=== PATIENT | male | born 1980 | race Two or more races ===

== ENCOUNTER 2016-12-29 17:44 | Emergency (ER) | payer MEDICAID ==
[2016-12-29] MEDS ORDERED: LORAZEPAM 1 MG TABLET PO ONE (19:17)
[2016-12-29] MEDS ORDERED: MECLIZINE HCL 25 MG TABLET PO ONE ×2 (19:17→20:51)
--- NOTE | 2016-12-29 19:41 | ER Document Report ---
ED General - General Chief Complaint: Near Syncope Stated Complaint: DIZZY,NEAR SYNCOPE,NAUSEA Time Seen by Provider: 12/29/16 18:28 Mode of Arrival: Ambulatory Information source: Patient Notes: 36-year-old male presents with complaints of vertigo. Patient notes symptoms occurred when he tried to sit up suddenly from laying flat. Patient notes he felt extremely dizzy denied any chest pain shortness of breath Is improved when staying still TRAVEL OUTSIDE OF THE [place] IN LAST 30 DAYS: No - HPI Onset: Just prior to arrival Onset/Duration: Sudden Quality of pain: No pain Severity: Moderate Pain Level: Denies Associated symptoms: Other Exacerbated by: Movement Relieved by: Remaining still Similar symptoms previously: No Recently seen / treated by doctor: No - Related Data Allergies/Adverse Reactions: No Known Allergies Allergy (Verified 12/29/16 17:51) Past Medical History - Social History Smoking Status: Current Every Day Smoker Cigarette use (# per day): Yes Chew tobacco use (# tins/day): No Smoking Education Provided: No Family History: Reviewed & Not Pertinent Patient has suicidal ideation: No Patient has homicidal ideation: No - Past Medical History Cardiac Medical History: Reports: Hx Heart Attack, Hx Hypercholesterolemia, Hx Hypertension Renal/ Medical History: Denies: Hx Peritoneal Dialysis Psychiatric Medical History: Reports: Hx Depression - Immunizations Hx Diphtheria, Pertussis, Tetanus Vaccination: Yes Review of Systems - Review of Systems Notes: REVIEW OF SYSTEMS: CONSTITUTIONAL : Denies fever, chills, or sweats. Denies recent illness. EENT: Denies eye, ear, throat, or mouth pain or symptoms. Denies nasal or sinus congestion or discharge. Denies throat, tongue, or mouth swelling or difficulty swallowing. CARDIOVASCULAR: Denies chest pain. Denies palpitations or racing or irregular heart beat. Denies ankle edema. RESPIRATORY: Denies cough, cold, or chest congestion. Denies shortness of breath, difficulty breathing, or wheezing. GASTROINTESTINAL: Denies abdominal pain or distention. Denies nausea, vomiting , or diarrhea. Denies blood in vomitus, stools, or per rectum. Denies black, tarry stools. Denies constipation. GENITOURINARY: Denies difficulty urinating, painful urination, burning, frequency, blood in urine, or discharge. MUSCULOSKELETAL: Denies back or neck pain or stiffness. Denies joint pain or swelling. SKIN: Denies rash, lesions or sores. HEMATOLOGIC : Denies easy bruising or bleeding. LYMPHATIC: Denies swollen, enlarged glands. NEUROLOGICAL: Admits to vertigo PSYCHIATRIC: Denies anxiety or stress. Denies depression, suicidal ideation, or homicidal ideation. ALL OTHER SYSTEMS REVIEWED AND NEGATIVE. Dictation was performed using [employer] voice recognition software PHYSICAL EXAMINATION: GENERAL: Well-appearing, well-nourished and in no acute distress. HEAD: Atraumatic, normocephalic. EYES: Pupils equal round and reactive to light, extraocular movements intact, sclera anicteric, conjunctiva are normal. ENT: Nares patent, oropharynx clear without exudates. Moist mucous membranes. NECK: Normal range of motion, supple without lymphadenopathy LUNGS: Breath sounds clear to auscultation bilaterally and equal. No wheezes rales or rhonchi. HEART: Regular rate and rhythm without murmurs ABDOMEN: Soft, nontender, nondistended abdomen. No guarding, no rebound. No masses appreciated. Musculoskeletal: Normal range of motion, no pitting or edema. No cyanosis. NEUROLOGICAL: Completely reproducible vertigo symptoms cranial nerves grossly intact. Normal speech, normal gait. Normal sensory, motor exams PSYCH: Normal mood, normal affect. SKIN: Warm, Dry, normal turgor, no rashes or lesions noted. Physical Exam - Vital signs Vitals: Temp Pulse Resp BP Pulse Ox 98.4 F 72 17 143/90 H 97 12/29/16 17:51 12/29/16 17:51 12/29/16 17:51 12/29/16 17:51 12/29/16 17:51 Course - Re-evaluation Re-evalutation: 12/29/16 20:01 Patient's presentation is consistent with vertigo which is positional, when patient turns to the right he has nystagmus and immediately has exact symptoms. He will be treated for his symptoms and is otherwise stable for discharge After performing a Medical Screening Examination, I estimate there is LOW risk for INTRACRANIAL HEMORRHAGE, ISCHEMIC CVA, MALIGNANT DYSRHYTHMIA, ACUTE CORONARY SYNDROME, MENINGITIS, PULMONARY EMBOLISM, or SEPSIS thus I consider the discharge disposition reasonable. I have reevaluated this patient multiple times and no significant life threatening changes are noted. The patient and I have discussed the diagnosis and risks, and we agree with discharging home with close follow-up with the understanding that symptoms and presentations can change. We also discussed returning to the Emergency Department immediately if new or worsening symptoms occur. We have discussed the symptoms which are most concerning (e.g., changing or worsening pain, weakness, vomiting, fever) that necessitate immediate return. - Vital Signs Vital signs: Temp Pulse Resp BP Pulse Ox 98.4 F 72 17 143/90 H 97 12/29/16 17:51 12/29/16 17:51 12/29/16 17:51 12/29/16 17:51 12/29/16 17:51 - EKG Interpretation by Nv EKG shows normal: Sinus rhythm, [place], Intervals, QRS Complexes Discharge - Discharge Clinical Impression: Vertigo Condition: Stable Disposition: HOME, SELF-CARE Instructions: Vertigo ([facility]) Prescriptions: Meclizine HCl [Antivert 25 mg Tablet] 25 mg PO TID PRN #21 tablet PRN Reason: Referrals: NEDRA KOCH MD [Primary Care Provider] - Follow up in 3-5 days
[2016-12-29 20:03] LABS: ABSOLUTE BASOPHILS # (AUTO) 0.1 10^3/uL (0.0-0.2); ABSOLUTE EOSINOPHILS # (AUTO) 0.3 10^3/uL (0.0-0.6); ABSOLUTE MONOCYTES (AUTO) 0.7 10^3/uL (0.1-1.4); ABSOLUTE NEUT (AUTO) 4.2 10^3/uL (1.7-8.2); BASOPHILS % (AUTO) 0.8 % (0-2); EOSINOPHILS % (AUTO) 3.4 % (0-6); HEMATOCRIT 43.8 % (37.9-51.0); HEMOGLOBIN 14.9 g/dL (13.5-17.0); HGB HCT DIFFERENCE 0.9; LYMPHOCYTES % (AUTO) 36.8 % (13-45); MEAN CORPUSCULAR HEMOGLOBIN 29.9 pg (27.0-33.4); MEAN CORPUSCULAR HGB CONC 34.1 g/dL (32.0-36.0); MEAN CORPUSCULAR VOLUME 88 fl (80-97); MONOCYTES % (AUTO) 8.1 % (3-13); RED CELL DISTRIBUTION WIDTH 13.9 % (11.5-14.0); SEGMENTED NEUTROPHILS % (AUTO) 50.9 % (42-78); WHITE BLOOD COUNT 8.3 10^3/uL (4.0-10.5)
[2016-12-29 20:38] LABS: ALANINE AMINOTRANSFERASE 48 U/L (21-72); ALBUMIN 4.3 g/dL (3.5-5.0); ALKALINE PHOSPHATASE 55 U/L (38-126); ANION GAP 14 (5-19); ASPARTATE AMINO TRANSFERASE 26 U/L (17-59); BILIRUBIN,DIRECT 0.3 mg/dL (0.0-0.4); BILIRUBIN,TOTAL 0.4 mg/dL (0.2-1.3); BLOOD UREA NITROGEN 15 mg/dL (7-20); CARBON DIOXIDE 23 mmol/L (22-30); CHLORIDE 106 mmol/L (98-107); CREATININE RESULT 0.79 mg/dL (0.52-1.25); GLUCOSE 89 mg/dL (75-110); POTASSIUM 4.1 mmol/L (3.6-5.0); SODIUM 142.6 mmol/L (137-145); TOTAL PROTEIN 7.2 g/dL (6.3-8.2)
[2016-12-29 21:17] VITALS: BP 140/68
--- NOTE | 2016-12-30 10:42 | EKG REPORT ---
SEVERITY:- ABNORMAL ECG - SINUS RHYTHM LEFT POSTERIOR FASCICULAR BLOCK : Confirmed by: Joshua Watts 30-Dec-2016 10:42:11
== END 2016-12-29 21:17 | disposition home or self-care (01) ==
LOC: ER 17:44
DX: R42 Dizziness and giddiness (principal); R55 Syncope and collapse; R11.0 Nausea; F17.210 Nicotine dependence, cigarettes, uncomplicated
CPT/HCPCS: 36415; 80053; 85025; 93005; 93010; 99284

== ENCOUNTER 2017-03-29 20:48 | Observation (INO) | payer MEDICAID ==
--- NOTE | 2017-03-29 21:10 | ER Document Report ---
ED Snake Bite <BETO OLEA - Last Filed: 03/29/17 23:35> - General Mode of Arrival: Ambulatory Information source: Patient TRAVEL OUTSIDE OF THE [place] IN LAST 30 DAYS: No - HPI Context of attack: Approached snake Remembers: Injury, Coming to hospital Prehospital treatment: Elevation <SAPPHIRE TA - Last Filed: 03/30/17 01:38> - General Chief Complaint: Snake Bite Stated Complaint: POSSIBLE SNAKE BITE Time Seen by Provider: 03/29/17 21:06 Notes: Patient is a 36-year-old male that presents to the emergency department today with complaints of a copperhead snake bite to his right third digit on upper extremity. Patient states that he knew it was a copperhead snake but he "does not kill anything" so he tried to get it out of his yard. Patient complains of pain and swelling to the finger. (SAPPHIRE TA) - Related Data Allergies/Adverse Reactions: No Known Allergies Allergy (Verified 03/29/17 20:51) Past Medical History - General Information source: Patient - Social History Smoking Status: Current Every Day Smoker Cigarette use (# per day): Yes Frequency of alcohol use: None Drug Abuse: None Lives with: Family Family History: Reviewed & Not Pertinent Patient has suicidal ideation: No Patient has homicidal ideation: No - Past Medical History Cardiac Medical History: Reports: Hx Heart Attack, Hx Hypercholesterolemia, Hx Hypertension Psychiatric Medical History: Reports: Hx Depression Surgical Hx: Negative - Immunizations Hx Diphtheria, Pertussis, Tetanus Vaccination: Yes <SAPPHIRE TA - Last Filed: 03/30/17 01:38> Review of Systems - Review of Systems Constitutional: No symptoms reported EENT: No symptoms reported Cardiovascular: No symptoms reported Respiratory: No symptoms reported Gastrointestinal: No symptoms reported Genitourinary: No symptoms reported Male Genitourinary: No symptoms reported Musculoskeletal: See HPI, Other - right 3rd digit swelling Skin: No symptoms reported Hematologic/Lymphatic: No symptoms reported Neurological/Psychological: No symptoms reported -: Yes All other systems reviewed and negative <SAPPHIRE TA - Last Filed: 03/30/17 01:38> Physical Exam <BETO OLEA - Last Filed: 03/29/17 23:35> <SAPPHIRE TA - Last Filed: 03/30/17 01:38> - Vital signs Vitals: Temp Pulse Resp BP Pulse Ox 98.8 F 72 19 157/97 H 96 03/29/17 20:51 03/29/17 20:51 03/29/17 20:51 03/29/17 20:51 03/29/17 20:51 - Notes Notes: Physical Exam: General: Alert, appears well. HEENT: Normocephalic. Atraumatic. PERRL. Extraocular movements intact. Oropharynx clear. Neck: Supple. Non-tender. Respiratory: No respiratory distress. Clear and equal breath sounds bilaterally. Cardiovascular: Regular rate and rhythm. Abdominal: Normal Inspection. Non-tender. No distension. Normal Bowel Sounds. Back: Non-tender. No deformity or step off. Extremities: Moves all four extremities. Upper extremities: Right third digit has puncture wounds consistent with snake bite, localized pain and swelling at the MCP joint up to dorsum of the hand. Lower extremities: Normal inspection. No edema. Normal ROM. Neurological: Normal cognition. AAOx4. Normal speech. Psychological: Normal affect. Normal Mood. Skin: Warm. Dry. Normal color. (SAPPHIRE TA) Course - Laboratory Result Diagrams: 03/29/17 21:27 <BETO OLEA - Last Filed: 03/29/17 23:35> - Laboratory Result Diagrams: 03/29/17 21:27 <SAPPHIRE TA - Last Filed: 03/30/17 01:38> - Re-evaluation Re-evalutation: 03/29/17 23:35 Patient presented to the emergency department approximately 15 minutes after he reached out to grab a copperhead snake that was in his yard. He said he wanted to grab a hold of it and throat back into the [place]adows. He got bit on his third digit of his right hand which is where he is dominant. On examination immediately at the bedside he has localized pain and swelling at the MCP joint up to the dorsum of the hand. It is localized red and swollen and tender. Immediately after evaluating him I contacted poison control ordered laboratory evaluation cleanse the area. At this point described called down to the pharmacy and they said that they do not have any antivenom. I personally called the pharmacist who verified to me that she was in fact the pharmacist. I asked her specifically whether or not we had the antivenom here. She stated we were on back order and did not have any antivenom CroFab and that there was no alternative. At this point I contacted the nursing clean up supervisor as well as [facility] and had an accepting physician by the name of Dr. DIPIKA VASQUEZ. The helicopter was not flying due to weather and we were making arrangements for ground transport. The nursing clean up supervisor in ED nurse called over to [facility] to see if they had any antivenom. They in fact did have enough to get the initial dose in. They sent someone over to get the antivenom and it was obtained in the emergency department. At this point it was discovered that the pharmacist incorrectly stated that we did not have any CroFab and we actually have several vials of CroFab. The director of the pharmacy was notified. At this point the patient's swelling went up to the chest heaviness and fatigue and nausea. CroFab is currently being administered to the patient and we have in our files here for the complete course. I contacted Dr. Aldridge who is on-call for surgery and is going to admit the patient to the hospital. He is reassessed at the bedside stable and doing well. I contacted vitamin back and canceled the transfer of the patient. (EBTO OLEA) - Vital Signs Vital signs: Temp Pulse Resp BP Pulse Ox 98.8 F 72 20 152/98 H 99 03/29/17 20:51 03/29/17 20:51 03/30/17 00:15 03/30/17 00:01 03/30/17 00:01 Critical Care Note - Critical Care Note Total time excluding time spent on procedures (mins): 55 <BETO OLEA - Last Filed: 03/29/17 23:35> Discharge - Discharge Admitting Provider: Surgicalist <BETO OLEA - Last Filed: 03/29/17 23:35> <SAPPHIRE TA - Last Filed: 03/30/17 01:38> - Discharge Clinical Impression: Acute snakebite requiring antivenom Condition: Stable Disposition: ADMITTED INPATIENT Scribe Attestation: 03/29/17 23:38 I personally performed the services described in the documentation reviewed the documentation recorded by my scribe in my presence and it accurately and completely records my words and actions (BETO OLEA) Scribe Documentation - Scribe Written by Scribe:: Roberto Thomas, 03/30/2017 [id number] acting as scribe for :: Kip <SAPPHIRE TA - Last Filed: 03/30/17 01:38>
[2017-03-29 21:47] LABS: ABSOLUTE BASOPHILS # (AUTO) 0.1 10^3/uL (0.0-0.2); ABSOLUTE EOSINOPHILS # (AUTO) 0.3 10^3/uL (0.0-0.6); ABSOLUTE LYMPHOCYTES (AUTO) 2.9 10^3/uL (0.5-4.7); ABSOLUTE MONOCYTES (AUTO) 0.6 10^3/uL (0.1-1.4); ABSOLUTE NEUT (AUTO) 3.9 10^3/uL (1.7-8.2); BASOPHILS % (AUTO) 0.7 % (0-2); EOSINOPHILS % (AUTO) 3.9 % (0-6); HEMATOCRIT 43.3 % (37.9-51.0); HEMOGLOBIN 14.6 g/dL (13.5-17.0); HGB HCT DIFFERENCE 0.5; MEAN CORPUSCULAR HEMOGLOBIN 30.3 pg (27.0-33.4); MEAN CORPUSCULAR HGB CONC 33.9 g/dL (32.0-36.0); MEAN CORPUSCULAR VOLUME 90 fl (80-97); MONOCYTES % (AUTO) 7.4 % (3-13); RED BLOOD COUNT 4.83 10^6/uL (4.35-5.55); RED CELL DISTRIBUTION WIDTH 13.9 % (11.5-14.0); WHITE BLOOD COUNT 7.7 10^3/uL (4.0-10.5)
[2017-03-29 21:51] LABS: PROTHROMBIN TIME 13.5 SEC (11.4-15.4)
[2017-03-29] MEDS ORDERED: ANTIVENIN,CROTALIDAE FAB(OVIN) INJ 1 VIAL IV ONE ×2 (23:18→23:21)
[2017-03-29] MEDS ORDERED: FENTANYL CITRATE INJ/PF 100 MCG/2 ML AMPUL IV ONE (23:41)
--- NOTE | 2017-03-29 23:55 | EKG REPORT ---
SEVERITY:- ABNORMAL ECG - SINUS RHYTHM INCOMPLETE RIGHT BUNDLE BRANCH BLOCK : Confirmed by: Joshua Watts 29-Mar-2017 23:54:37
[2017-03-30] MEDS ORDERED: ONDANSETRON HCL INJ/PF 4 MG/2 ML SDV IV PRN (01:23)
[2017-03-30] MEDS ORDERED: PIPERACILLIN/TAZOBACTAM 3.375 GM VIAL IV ONE ×2 (01:28→02:42)
[2017-03-30] MEDS ORDERED: PIPERACILLIN/TAZOBACTAM 3.375 GM VIAL IV PRN (02:02)
[2017-03-30] MEDS: MORPHINE SULFATE 10 MG/ML INJ IV PRN ×2 (02:36→09:23)
--- NOTE | 2017-03-30 02:38 | HISTORY AND PHYSICAL E ---
History and Physical NAME: ABRAHAN TORRES : 1980 AGE: 36Y ADMITTED: 03/29/2017 ROOM: 425 REASON FOR ADMISSION: Copperhead snake bite to the middle finger dorsal aspect of the right hand. HISTORY OF PRESENT ILLNESS: This 36-year-old male was called by his children because they saw a large snake in the backyard. The patient attempted to grab the snake to throw it back into the brush but sustained a copperhead rattlesnake bite to the dorsum of the third digit of the right hand between the metacarpal and proximal IP joint. There was only mild envenomation as there is only 1 fang waleska noted on the dorsum of the third digit of the right hand between the metacarpal phalangeal joint. The patient developed swelling of his hand to the distal forearm but there is no history of *------* numbness, lightheadedness, or any signs of moderate or severe evenomation. Patient presented to the emergency room with stable vital signs, complaining of only swelling of his right arm. Patient was given CroFab. Clotting studies were drawn; all of which showed no evidence of defibrination. Patient is now admitted for observation. PAST MEDICAL HISTORY: 1. Mitral valve prolapse. 2. Murmur. 3. Cardiac disease since age 13. REVIEW OF SYSTEMS: Patient has no symptoms referable to the ear, nose and throat, respiratory system. No symptoms referable to the gastrointestinal, genitourinary, musculoskeletal, integumentary, lymphatic, endocrine, or psychiatric symptoms. PHYSICAL EXAMINATION: GENERAL: Reveals a 36-year-old male who is well nourished, well developed, in no acute distress. VITAL SIGNS: Stable. Saturation is 98%, heart rate is 60, blood pressure 130/80. HEENT: There is no conjunctival pallor or scleral icterus. Head is normocephalic, atraumatic. Mucous membranes are moist and pink. NECK: Supple without nodes, masses, thyromegaly, JVD, or bruits. Trachea is midline. CHEST WALL: Good excursions. LUNGS: Clear anteriorly with good entry. CARDIOVASCULAR: S1 and S2 are audible without murmurs or gallops. ABDOMEN: Soft. Bowel sounds are present. No hernias or bruits. No tenderness. EXTREMITIES: Full range of motion. Pertinent findings are limited to the right hand where patient is noted to have 1 fang waleska between the MP joint of the third digit of the right hand on the dorsal surface. There is swelling of a mild to moderate degree involving the hand, wrist,and forearm to just above the antecubital fossa. It is not tense. There are adequate pulses noted throughout the hand. Distal, radial, and ulnar pulses are palpable. No evidence of compartment syndrome. RECTAL: Deferred. IMPRESSION: Copperhead snake bite to the third digit right hand dorsal surface between the MP joint, with mild envenomation, and no evidence of defibrination or clotting disorder or DIC. PLAN: Patient is to be given antibiotic therapy, elevation of their right arm, and supportive therapy. DICTATING PHYSICIAN: ROBE RIZO M.D. [id number] YURIY#: [id number] ID: [id number] JOB#: [id number] ACCT: [id number] cc: >
[2017-03-30] MEDS ORDERED: ANTIVENIN,CROTALIDAE FAB(OVIN) INJ 1 VIAL IV PRN (02:49)
[2017-03-30] MEDS ORDERED: ANTIVENIN,CROTALIDAE FAB(OVIN) INJ 1 VIAL IV ONE ×2 (04:43→05:08)
[2017-03-30] MEDS ORDERED: NORMAL SALINE IV PRN (05:01)
[2017-03-30] MEDS ORDERED: ANTIVENIN CROTALIDAE FAB IV PRN (05:01)
[2017-03-30] MEDS: ENOXAPARIN SODIUM INJ 40 MG/0.4 ML DISP.SYRIN SUBCUT SCH (09:21)
[2017-03-30] MEDS: ESCITALOPRAM OXALATE 10 MG TABLET PO SCH (09:22)
[2017-03-30] MEDS: DOCUSATE SODIUM 100 MG CAPSULE PO SCH (09:22)
[2017-03-30] MEDS ORDERED: MORPHINE SULFATE 10 MG/ML INJ IV PRN (12:26)
[2017-03-30 13:03] LABS: ABSOLUTE EOSINOPHILS # (AUTO) 0.3 10^3/uL (0.0-0.6); ABSOLUTE LYMPHOCYTES (AUTO) 2.5 10^3/uL (0.5-4.7); ABSOLUTE MONOCYTES (AUTO) 0.6 10^3/uL (0.1-1.4); ABSOLUTE NEUT (AUTO) 3.4 10^3/uL (1.7-8.2); BASOPHILS % (AUTO) 0.5 % (0-2); EOSINOPHILS % (AUTO) 3.9 % (0-6); HEMOGLOBIN 14.3 g/dL (13.5-17.0); HGB HCT DIFFERENCE 1.9; LYMPHOCYTES % (AUTO) 36.8 % (13-45); MEAN CORPUSCULAR HEMOGLOBIN 30.8 pg (27.0-33.4); MEAN CORPUSCULAR VOLUME 88 fl (80-97); MONOCYTES % (AUTO) 8.5 % (3-13); RED BLOOD COUNT 4.65 10^6/uL (4.35-5.55); RED CELL DISTRIBUTION WIDTH 13.9 % (11.5-14.0); SEGMENTED NEUTROPHILS % (AUTO) 50.3 % (42-78); WHITE BLOOD COUNT 6.8 10^3/uL (4.0-10.5)
[2017-03-30 13:14] LABS: FIBRINOGEN 256 mg/dL (209-497); PROTHROMBIN TIME 13.5 SEC (11.4-15.4)
[2017-03-30] MEDS: HYDROMORPHONE HCL INJ/PF 2 MG/ML AMPULE IV PRN ×2 (13:48→18:45)
[2017-03-30] MEDS: NORMAL SALINE 1000 ML 1,000 ML IV PRN ×2 (16:08→18:09)
--- NOTE | 2017-03-30 17:38 | PDOC CONSULTATION ---
History of Present Illness Admission Date/PCP: 03/30/17 01:24 NEDRA KOCH MD Patient complains of: Right hand swelling History of Present Illness: ABRAHAN TORRES is a 36 year old male who presented to the emergency room last evening with redness and swelling in his right hand. He states he was bit by a snake in the middle finger. The snake was obtained and confirmed to be a copperhead snake bite. Patient received antivenom since then he has had significant improvement in terms of his swelling although he still unable to make a full fist. He has been using Dilaudid with good results. Does have some tingling pain 10/06. Past Medical History Cardiac Medical History: Reports: Myocardial Infarction, Hyperlipidema, Hypertension Psychiatric Medical History: Reports: Depression Social History Lives with: Family Smoking Status: Current Every Day Smoker Cigarettes Packs Per Day: 0.5 Frequency of Alcohol Use: Occasional Hx Recreational Drug Use: No Hx Prescription Drug Abuse: No Family History Family History: Reviewed & Not Pertinent Parental Family History Reviewed: No Children Family History Reviewed: No Sibling(s) Family History Reviewed.: No Medication/Allergy Home Medications: Escitalopram Oxalate [Lexapro] 20 mg PO DAILY 06/02/11 Fenofibrate Nanocrystallized [Tricor 145 mg Tablet] 145 mg PO QHS 01/25/14 Allergies/Adverse Reactions: No Known Allergies Allergy (Verified 03/29/17 20:51) Review of Systems Constitutional: ABSENT: chills, fever(s), headache(s), weight gain, weight loss Eyes: ABSENT: visual disturbances Ears: ABSENT: hearing changes Cardiovascular: ABSENT: chest pain, dyspnea on exertion, edema, orthropnea, palpitations Respiratory: ABSENT: cough, hemoptysis Gastrointestinal: ABSENT: abdominal pain, constipation, diarrhea, hematemesis, hematochezia, nausea, vomiting Genitourinary: ABSENT: dysuria, hematuria Musculoskeletal: PRESENT: as per HPI Integumentary: ABSENT: rash, wounds Neurological: ABSENT: abnormal gait, abnormal speech, confusion, dizziness, focal weakness, syncope Psychiatric: ABSENT: anxiety, depression, homidical ideation, suicidal ideation Endocrine: ABSENT: cold intolerance, heat intolerance, menstrual abnormalities, polydipsia, polyuria Hematologic/Lymphatic: ABSENT: easy bleeding, easy bruising, lymphadenopathy Physical Exam Vital Signs: Temp Pulse Resp BP Pulse Ox 97.7 F 53 L 16 118/78 99 09/01/17 16:00 03/30/17 16:00 03/30/17 16:00 03/30/17 16:00 03/30/17 16:00 Intake & Output 03/29/17 03/30/17 03/31/17 06:59 06:59 06:59 Intake Total 420 1854 Output Total 250 Balance 420 1604 Weight 94 kg General appearance: PRESENT: no acute distress, well-developed, well-nourished Head exam: PRESENT: atraumatic, normocephalic Eye exam: PRESENT: conjunctiva pink, EOMI, PERRLA. ABSENT: scleral icterus Ear exam: PRESENT: normal external ear exam Mouth exam: PRESENT: moist, tongue midline Neck exam: PRESENT: full ROM. ABSENT: carotid bruit, JVD, lymphadenopathy, thyromegaly Respiratory exam: PRESENT: unlabored Cardiovascular exam: PRESENT: RRR. ABSENT: diastolic murmur, rubs, systolic murmur Pulses: PRESENT: normal radial pulses Vascular exam: PRESENT: normal capillary refill GI/Abdominal exam: PRESENT: normal bowel sounds, soft. ABSENT: distended, guarding, mass, organolmegaly, rebound, tenderness Rectal exam: PRESENT: deferred Musculoskeletal exam: PRESENT: other - Right upper extremity: Areas of demarcated swelling had notably improved. Does have residual swelling along the forearm compared to the noninjured left side. Small puncture wound along the dorsum of the middle finger at the level of the middle phalanx. Cap refill less than 2 seconds. No sensory deficits. No pain with passive stretch. Compartments of the hand and forearm soft and compressible no sign of compartment syndrome. Intact flexion of the DIP, PIP and MP joints. Neurological exam: PRESENT: alert, awake, oriented to person, oriented to place , oriented to time, oriented to situation, CN II-XII grossly intact. ABSENT: motor sensory deficit Psychiatric exam: PRESENT: appropriate affect, normal mood. ABSENT: homicidal ideation, suicidal ideation Skin exam: PRESENT: dry, intact, warm. ABSENT: cyanosis, rash Results Laboratory Results: 03/30/17 12:52 03/30/17 12:52 WBC 6.8 RBC 4.65 Hgb 14.3 Hct 41.0 MCV 88 MCH 30.8 MCHC 35.0 RDW 13.9 Plt Count 211 Seg Neutrophils % 50.3 Lymphocytes % 36.8 Monocytes % 8.5 Eosinophils % 3.9 Basophils % 0.5 Absolute Neutrophils 3.4 Absolute Lymphocytes 2.5 Absolute Monocytes 0.6 Absolute Eosinophils 0.3 Absolute Basophils 0.0 Assessment & Plan - Diagnosis (1) Venomous bite Qualifiers: Encounter type: initial encounter Injury intent: accidental or unintentional Qualified Code(s): T63.91XA - Toxic effect of contact with unspecified venomous animal, accidental (unintentional), initial encounter Is this a current diagnosis for this admission?: Yes Plan: She sustained a copperhead snake bite and was treated promptly with antivenom. Coags and metabolic profile have maintained normal values. On examination there is no sign or symptoms of compartment syndrome and I feel compartment syndrome is less likely at this juncture he should continue aggressive elevation and have also encouraged passive and active motion of the digits. If patient notices increasing pain swelling or there is concern for compartment syndrome please contact me for reevaluation.
--- NOTE | 2017-03-30 21:38 | PROGRESS NOTE E ---
Progress Note NAME: ABRAHAN TORRES : 1980 AGE: 36Y DATE: 03/30/2017 ROOM: 425 SUBJECTIVE: The patient is still complaining of pain from the right hand where primarily he had a snake bite of the right third finger. Other than the pain, no other complaints. Denies any numbness of the right hand. He claims the swelling appears to have subsided a little bit from last night. I have asked Dr. Torres, Orthopedics, to evaluate him for a possible compartment syndrome. He evaluated the patient and he said there is no evidence of compartment syndrome at this time. OBJECTIVE: On examination, the right hand is still markedly swollen compared to the left hand. However, he has intact sensation to the right fingers with just slight decrease in flexion range. His right wrist pulses are intact. The swelling over the right elbow, according to the patient, appears to have subsided and I also saw him early this morning and this afternoon. This afternoon the swelling appears to have somewhat slightly decreased. LABORATORY: Labs showed white count remained normal and the PT/INR remained essentially unchanged fibrinogen level is at 256. PLAN: Will continue him on right arm elevation and IV antibiotic therapy for the next 12-24 hours. DICTATING PHYSICIAN: MOISES MATHIS M.D. [id number] PHY#: [id number] ID: [id number] JOB#: [id number] ACCT: [id number] cc: > [facility]
[2017-03-30] MEDS ORDERED: FENOFIBRATE NANOCRYSTALLIZED 145 MG TABLET PO SCH (22:00)
[2017-03-31 05:24] LABS: ALANINE AMINOTRANSFERASE 47 U/L (21-72); ALBUMIN 3.6 g/dL (3.5-5.0); ALKALINE PHOSPHATASE 57 U/L (38-126); ANION GAP 10 (5-19); ASPARTATE AMINO TRANSFERASE 20 U/L (17-59); BILIRUBIN,DIRECT 0.3 mg/dL (0.0-0.4); BILIRUBIN,TOTAL 0.3 mg/dL (0.2-1.3); BLOOD UREA NITROGEN 14 mg/dL (7-20); CALCIUM 9.2 mg/dL (8.4-10.2); CARBON DIOXIDE 23 mmol/L (22-30); CHLORIDE 108 mmol/L (98-107); GLUCOSE 104 mg/dL (75-110); POTASSIUM 4.3 mmol/L (3.6-5.0); SODIUM 141.4 mmol/L (137-145); TOTAL PROTEIN 5.9 g/dL (6.3-8.2)
[2017-03-31] MEDS: ENOXAPARIN SODIUM INJ 40 MG/0.4 ML DISP.SYRIN SUBCUT SCH (11:01)
[2017-03-31] MEDS: ESCITALOPRAM OXALATE 10 MG TABLET PO SCH (11:02)
[2017-03-31] MEDS: DOCUSATE SODIUM 100 MG CAPSULE PO SCH (11:04)
[2017-03-31 12:31] VITALS: BP 132/78
--- NOTE | 2017-04-06 12:12 | DISCHARGE SUMMARY E ---
Discharge Summary NAME: ABRAHAN TORRES : 1980 AGE: 36Y ADMITTED: 03/30/2017 DISCHARGED: 03/31/2017 FINAL DIAGNOSIS: Copperhead Snake bite to the right middle finger. SUMMARY OF HOSPITAL COURSE: This is a 36-year-old male who attempted to grab a Copperhead Snake to throw it back into the pina but sustained a Copperhead Snake bite to the dorsum of the third digit of the right hand between the metacarpal and proximal IP joint. There was only one fine waleska noted on the dorsum of the third digit of the right hand. However, the patient developed swelling of the hand and the distal forearm with some numbness and light headedness when he presented to emergency room. His vital signs were stable and was given CroFab about 4 doses, and clotting studies were drawn and no evidence of defibrination. The patient was followed on 03/30/2017, and there is some swelling of the right hand and the right forearm to the elbow though the patient claims that the swelling really has not gotten any worse from the night of admission. Blood work were drawn again for coagulation and fibrinogen levels which were all essentially normal. An Orthopedic consultation with Dr. Amaya to rule out a compartment syndrome was done. Dr. Amaya from [facility] claimed there is no evidence of compartment syndrome. The patient had another dose of CroFab on 03/30/2017. On 03/31/2017, the swelling of the right hand and the right forearm has decreased with patient able to have better movements of the right fingers. There is no numbness. DISPOSITION AND DISCHARGE INSTRUCTIONS: The patient was then discharged improved, to be followed up in the surgical clinic in a week. Patient discharged with a final diagnosis of snake bite to the right middle finger with subsequent edema. The patient was then discharged on 03/31/2017. DICTATING PHYSICIAN: MOISES MATHIS M.D. [id number] PHY#: [id number] ID: [id number] JOB#: [id number] ACCT: [id number] cc:MOISES MATHIS M.D. [facility] >
== END 2017-03-31 13:05 | disposition home health service (06) ==
LOC: ER 20:48 → EH 23:45 → UNDOADMIN 23:45 → EH 03-30 01:00 → 4S 03-30 01:00 → EH 03-30 01:24 → INTOOBSV 03-30 01:24 → EH 03-30 01:34 → 4S 03-30 01:34 → UNDOADMIN 03-30 01:34
PROVIDERS: ATTEND Surgery
PROC: 3E0334Z Introduction of Serum, Toxoid and Vaccine into Peripheral Vein, Percutaneous Approach (ICD-10-PCS; principal; 2017-03-30)
DX: T63.091A Toxic effect of venom of other snake, accidental (unintentional), initial encounter (principal); R09.89 Other specified symptoms and signs involving the circulatory and respiratory systems; R53.83 Other fatigue; R11.0 Nausea; R42 Dizziness and giddiness; R20.0 Anesthesia of skin; Y92.096 Garden or yard of other non-institutional residence as the place of occurrence of the external cause; F17.210 Nicotine dependence, cigarettes, uncomplicated; I25.2 Old myocardial infarction; E78.5 Hyperlipidemia, unspecified
CPT/HCPCS: 93005; 99285; 96365; 36415 ×3; 85025 ×2; 85384; 85610 ×2; 80053; 93010; G0378 ×2; J0840 ×2; J3490 ×2; J3010; J2270; J1650 ×2; J1170; J7030; J7050; J2543

== ENCOUNTER → 2018-04-27 | Outpatient (CLI) | payer MEDICAID ==
--- NOTE | 2018-04-27 16:05 | RADIOLOGY REPORT (SQ) ---
EXAM DESCRIPTION: CHEST 2 VIEWS COMPLETED DATE/TIME: 04/27/2018 3:48 pm REASON FOR STUDY: COUGH COMPARISON: 10/18/2015 TECHNIQUE: Frontal and lateral radiographic views of the chest acquired. NUMBER OF VIEWS: Two view. LIMITATIONS: None. FINDINGS: LUNGS AND PLEURA: No pneumothorax. No consolidation or pleural effusion. MEDIASTINUM AND HILAR STRUCTURES: Stable. HEART AND VASCULAR STRUCTURES: Stable. BONES: No acute findings. HARDWARE: None in the chest. OTHER: No other significant finding. IMPRESSION: NO ACUTE FINDINGS. TECHNICAL DOCUMENTATION: JOB ID: [id number] 2010 [employer]- All Rights Reserved Reading location - IP/workstation name: [email or web address]
== END ==
LOC: RAD 15:26
PROVIDERS: ATTEND Nurse Practitioner Family
DX: R05 Cough (principal)
CPT/HCPCS: 71046

== ENCOUNTER 2019-01-15 16:40 | Emergency (ER) | payer MEDICAID ==
[2019-01-15 18:01] VITALS: BP 133/88
[2019-01-15] MEDS ORDERED: CEPHALEXIN 500 MG CAPSULE PO ONE (18:35)
[2019-01-15] MEDS ORDERED: SULFAMETHOXAZOLE/TRIMETHOPRIM 800-160 MG TABLET PO ONE (18:35)
[2019-01-15] MEDS ORDERED: IBUPROFEN 800 MG TABLET PO ONE (18:36)
--- NOTE | 2019-01-15 18:37 | ER Document Report ---
ED Medical Screen (RME) - General Chief Complaint: Abscess Stated Complaint: ABSCESS Time Seen by Provider: 01/15/19 18:35 Primary Care Provider: NEDRA KOCH MD [Primary Care Provider] - Follow up as needed Mode of Arrival: Ambulatory Notes: Patient presents with abscess to pubic area where he had previously shaved. Patient with tender indurated area with surrounding erythema. Patient denies any fever or history of diabetes. Patient also reports cough for the past 5 days. I have greeted and performed a rapid initial assessment of this patient. A comprehensive ED assessment and evaluation of the patient, analysis of test results and completion of the medical decision making process will be conducted by additional ED providers. TRAVEL OUTSIDE OF THE [place] IN LAST 30 DAYS: No - Related Data Allergies/Adverse Reactions: No Known Allergies Allergy (Verified 01/15/19 17:05) Past Medical History - Social History Frequency of alcohol use: Rare Drug Abuse: None - Past Medical History Cardiac Medical History: Reports: Hx Heart Attack, Hx Hypercholesterolemia, Hx Hypertension Renal/ Medical History: Denies: Hx Peritoneal Dialysis Psychiatric Medical History: Reports: Hx Depression - Immunizations Hx Diphtheria, Pertussis, Tetanus Vaccination: Yes Physical Exam - Vital signs Vitals: Temp Pulse Resp BP Pulse Ox 98.4 F 63 16 133/88 H 96 01/15/19 17:59 01/15/19 17:59 01/15/19 17:59 01/15/19 17:59 01/15/19 17:59 - General Notes: Abscess to pubic area with overlying erythema Course - Vital Signs Vital signs: Temp Pulse Resp BP Pulse Ox 98.4 F 63 16 133/88 H 96 01/15/19 17:59 01/15/19 17:59 01/15/19 17:59 01/15/19 17:59 01/15/19 17:59 Doctor's Discharge - Discharge Referrals: NEDRA KOCH MD [Primary Care Provider] - Follow up as needed
--- NOTE | 2019-01-15 19:21 | RADIOLOGY REPORT (SQ) ---
EXAM DESCRIPTION: CHEST 2 VIEWS COMPLETED DATE/TIME: 01/15/2019 7:14 pm REASON FOR STUDY: cough COMPARISON: 04/27/2018 EXAM PARAMETERS: NUMBER OF VIEWS: two views TECHNIQUE: Digital Frontal and Lateral radiographic views of the chest acquired. RADIATION DOSE: NA LIMITATIONS: none FINDINGS: LUNGS AND PLEURA: No opacities, masses or pneumothorax. No pleural effusion. MEDIASTINUM AND HILAR STRUCTURES: No masses or contour abnormalities. HEART AND VASCULAR STRUCTURES: Heart normal size. No evidence for failure. BONES: No acute findings. HARDWARE: None in the chest. OTHER: No other significant finding. IMPRESSION: NO ACUTE RADIOGRAPHIC FINDING IN THE CHEST. TECHNICAL DOCUMENTATION: JOB ID: [id number] [employer]- All Rights Reserved Reading location - IP/workstation name: [email or web address]
[2019-01-15] MEDS ORDERED: LIDOCAINE 1% INJ-PF (10 MG/ML) 30 ML SDV INJ ONE (23:12)
--- NOTE | 2019-01-16 00:20 | ER Document Report ---
Entered by SALLIE UGALDE SCRIBE 01/15/19 [id number] Acting as scribe for:RIA BRAN MD ED General - General Chief Complaint: Abscess Stated Complaint: ABSCESS Time Seen by Provider: 01/15/19 18:35 Primary Care Provider: NEDRA KOCH MD [Primary Care Provider] - Follow up as needed Mode of Arrival: Ambulatory Information source: Patient Notes: Patient is a 38 year old male presenting to the emergency department complaining of an abscess onset 4 days ago. Patient states he developed an ingrown hair in his pubic region 4 days ago. He states he attempted to "pop" the ingrown hair but was unsuccessful. He states the area has grown larger and become more painful. He also complains of a mild productive cough with minimal sputum. TRAVEL OUTSIDE OF THE [place] IN LAST 30 DAYS: No - Related Data Allergies/Adverse Reactions: No Known Allergies Allergy (Verified 01/15/19 17:05) Past Medical History - General Information source: Patient - Social History Smoking Status: Current Every Day Smoker Cigarette use (# per day): Yes - 1/2 PPD Chew tobacco use (# tins/day): No Smoking Education Provided: No Frequency of alcohol use: Rare Drug Abuse: None Occupation: [employer] Family History: Reviewed & Not Pertinent Patient has suicidal ideation: No Patient has homicidal ideation: No - Past Medical History Cardiac Medical History: Reports: Hx Heart Attack, Hx Hypercholesterolemia, Hx Hypertension Psychiatric Medical History: Reports: Hx Depression - Immunizations Hx Diphtheria, Pertussis, Tetanus Vaccination: Yes Review of Systems - Review of Systems Constitutional: No symptoms reported EENT: No symptoms reported Cardiovascular: No symptoms reported Respiratory: See HPI, Cough Gastrointestinal: No symptoms reported Genitourinary: No symptoms reported Male Genitourinary: No symptoms reported Musculoskeletal: No symptoms reported Skin: See HPI Hematologic/Lymphatic: No symptoms reported Neurological/Psychological: No symptoms reported -: Yes All other systems reviewed and negative Physical Exam - Vital signs Vitals: Temp Pulse Resp BP Pulse Ox 98.4 F 63 16 133/88 H 96 01/15/19 17:59 01/15/19 17:59 01/15/19 17:59 01/15/19 17:59 01/15/19 17:59 - Notes Notes: GENERAL: Alert, interacts well. No acute distress. HEAD: Normocephalic, atraumatic. EYES: Pupils equal, round, and reactive to light. Extraocular movements intact. ENT: Oral mucosa moist, tongue midline. NECK: Full range of motion. Supple. Trachea midline. LUNGS: Clear to auscultation bilaterally, no wheezes, rales, or rhonchi. No respiratory distress. HEART: Regular rate and rhythm. No murmurs, gallops, or rubs. EXTREMITIES: Moves all 4 extremities spontaneously. NEUROLOGICAL: Alert and oriented x3. Normal speech. PSYCH: Normal affect, normal mood. SKIN: Warm, dry. What appears to be an infected hair follicle in the pubic region with surrounding erythema, there is tender induration extending approximately 3x4cm on surface. Course - Vital Signs Vital signs: Temp Pulse Resp BP Pulse Ox 98.4 F 63 16 133/88 H 96 01/15/19 17:59 01/15/19 17:59 01/15/19 17:59 01/15/19 17:59 01/15/19 17:59 - Laboratory Laboratory results interpreted by me: 01/15/19 19:31 POC Glucose 136 H Procedures - Incision and Drainage Lower Abdomen Time completed: 00:15 Type: Simple Anesthetic type: 1% Lidocaine mL's of anesthetic: 4 Blade size: 11 I&D procedure: Iodoform packing placed Incision Method: Incision made by scalpel Amount/type of drainage: Small amount of purulent drainage Discharge - Discharge Clinical Impression: Suprapubic abscess Disposition: HOME, SELF-CARE Additional Instructions: Abscess You have an abscess (boil). This a pus-forming infection, usually due to staph. Some boils may be left to drain on their own, but most require lancing. From the time the tender lump first appears, it may be three or four days before the abscess is ready to lise. Local heat and rest help at this stage of treatment. An antibiotic may prevent spread of the infection. Once the abscess is opened, packing may be placed into it. This is done so pus is not sealed inside by premature closure of the cavity. The packing will be removed at your follow-up visit or you may be advised to remove it yourself at home. Sometimes this packing must be replaced a few times during healing. The wound will heal with surprisingly little scar. Depending on the size and location of an abscess, healing can take one to four weeks. You may shower and wash the area around the incision site two or three times a day. Antibiotics may be prescribed, but are usually not necessary after an abscess has been drained. If you develop fever, chilling, worsening pain, or increasing swelling in the area, call the doctor or return immediately. Take medication as prescribed for the next week. Take Tylenol and ibuprofen or Aleve for pain as needed. Apply warm soaks to the painful swollen area. Remove the gauze packing in 2 days. Immediately start probing the wound with a Q-tip dipped in peroxide, do this several times daily to prevent the skin from closing. Follow-up with Dr. Koch if not improving. RETURN TO THE EMERGENCY ROOM IF ANY NEW OR WORSENING SYMPTOMS. Prescriptions: Cephalexin Monohydrate [Keflex 500 mg Capsule] 500 mg PO QID #28 capsule Sulfamethoxazole/Trimethoprim [Septra-Ds 800-160 mg Tablet] 2 tab PO BID #28 tablet Referrals: NEDRA KOCH MD [Primary Care Provider] - Follow up as needed Scribe Attestation: 01/16/19 00:24 I personally performed the services described in the documentation, reviewed and edited the documentation which was dictated to the scribe in my presence, and it accurately records my words and actions. I personally performed the services described in the documentation, reviewed and edited the documentation which was dictated to the scribe in my presence, and it accurately records my words and actions.
[2019-01-16] MEDS ORDERED: CEPHALEXIN 500 MG CAPSULE PO ONE (00:25)
[2019-01-16] MEDS ORDERED: SULFAMETHOXAZOLE/TRIMETHOPRIM 800-160 MG TABLET PO ONE (00:26)
[2019-01-16] MEDS ORDERED: ACETAMINOPHEN 325 MG TABLET ONE (01:12)
[2019-01-16] MEDS ORDERED: ACETAMINOPHEN 325 MG TABLET PO ONE (01:14)
== END 2019-01-16 01:21 | disposition home or self-care (01) ==
LOC: ER 16:40
PROC: 0H97XZZ Drainage of Abdomen Skin, External Approach (ICD-10-PCS; principal; 2019-01-15)
DX: L02.214 Cutaneous abscess of groin (principal); R05 Cough; F17.210 Nicotine dependence, cigarettes, uncomplicated; I10 Essential (primary) hypertension
CPT/HCPCS: 99283; 87070; 87205; 82962; 87075; 87077; 87186; 71046; 10060; J3490 ×5

== ENCOUNTER → 2019-11-03 | Outpatient (CLI) | payer MEDICAID ==
--- NOTE | 2019-11-03 08:49 | RADIOLOGY REPORT (SQ) ---
EXAM DESCRIPTION: U/S ABDOMEN COMPLETE W/O DOP IMAGES COMPLETED DATE/TIME: 11/03/2019 8:33 am REASON FOR STUDY: (R94.5)ABNORMAL RESULTS OF LIVER FUNCTION STUDIES R94.5 ABNORMAL RESULTS OF LIVER FUNCTION STUDIES COMPARISON: None. TECHNIQUE: Dynamic and static grayscale images acquired of the abdomen and recorded on PACS. Additio nal selected color Doppler and spectral images recorded. Note: Study does not meet criteria for complete doppler/duplex scan LIMITATIONS: None. FINDINGS: PANCREAS: No masses. Visualized pancreatic duct normal caliber. LIVER: The liver demonstrates increased echogenicity consistent with fatty infiltration. There are f ocal areas of fatty sparing. The liver measures 17.6 cm in cranial caudal dimensions. No focal lesi ons. LIVER VASCULATURE: Normal directional flow of the main portal vein and hepatic veins. GALLBLADDER: No stones. Normal wall thickness. No pericholecystic fluid. ULTRASOUND-DETECTED PIZANO'S SIGN: Negative. INTRAHEPATIC DUCTS AND COMMON DUCT: CBD and intrahepatic ducts normal caliber. No filling defects. INFERIOR VENA CAVA: Normal flow. AORTA: No aneurysm. RIGHT KIDNEY: Normal size. Normal echogenicity. No solid or suspicious masses. No hydronephros is. No calcifications. LEFT KIDNEY: Normal size. Normal echogenicity. No solid or suspicious masses. No hydronephrosi s. No calcifications. SPLEEN: Normal size. No solid masses. PERITONEAL AND PLEURAL SPACES: No ascites or effusions. OTHER: No other significant finding. IMPRESSION: Fatty infiltrated liver with focal areas of fatty sparing. The liver measures 17.6 cm i n cranial caudal dimensions. TECHNICAL DOCUMENTATION: JOB ID: [id number] 2010 [employer]- All Rights Reserved Reading location - IP/workstation name: [email or web address]
== END ==
LOC: RAD 07:52
PROVIDERS: ATTEND Physician Assistant
DX: K76.0 Fatty (change of) liver, not elsewhere classified (principal); R94.5 Abnormal results of liver function studies
CPT/HCPCS: 76700

== ENCOUNTER → 2020-03-23 | Outpatient (CLI) | payer MEDICAID ==
--- NOTE | 2020-03-23 15:50 | RADIOLOGY REPORT (SQ) ---
EXAM DESCRIPTION: ELBOW RIGHT >2 VIEWS IMAGES COMPLETED DATE/TIME: 03/23/2020 3:15 pm REASON FOR STUDY: PAIN IN RT ELBOW M25.521 PAIN IN RIGHT ELBOW COMPARISON: None. NUMBER OF VIEWS: Four view. TECHNIQUE: AP, lateral, and both oblique radiographic images acquired of the right elbow. LIMITATIONS: None. FINDINGS: MINERALIZATION: Normal. BONES: No acute fracture or dislocation. No worrisome bone lesions. No significant osteophytes. JOINT: No effusions. SOFT TISSUES: No soft tissue swelling. No foreign body. OTHER: No other significant finding. IMPRESSION: NEGATIVE STUDY OF THE RIGHT ELBOW. NO EXPLANATION FOR PAIN. TECHNICAL DOCUMENTATION: JOB ID: [id number] 2010 [employer]- All Rights Reserved Reading location - IP/workstation name: [email or web address]
== END ==
LOC: OD 14:59
PROVIDERS: ATTEND Physician Assistant
DX: M25.521 Pain in right elbow (principal)

== ENCOUNTER → 2020-07-22 | Outpatient (CLI) | payer MEDICAID ==
--- NOTE | 2020-07-22 10:57 | RADIOLOGY REPORT (SQ) ---
EXAM DESCRIPTION: U/S ABDOMEN LIMITED W/O DOP IMAGES COMPLETED DATE/TIME: 07/22/2020 9:29 am REASON FOR STUDY: R74.8 ABNORMAL LEVELS OF OTHER SERUM ENZYMES R10.10 UPPER ABDOMINAL PAIN, UNSPECI FIED R74.8 ABNORMAL LEVELS OF OTHER SERUM ENZYMES COMPARISON: 11/03/2019 TECHNIQUE: Dynamic and static grayscale images acquired of the abdomen and recorded on PACS. Additio nal selected color Doppler and spectral images recorded. LIMITATIONS: None. FINDINGS: PANCREAS: No masses. Visualized pancreatic duct normal caliber. LIVER: Re- demonstration of hepatic steatosis with focal fatty sparing about the gallbladder fossa. No focal mass. No intrahepatic biliary dilatation. LIVER VASCULATURE: Normal directional flow of the main portal vein and hepatic veins. GALLBLADDER: No stones. Normal wall thickness. No pericholecystic fluid. ULTRASOUND-DETECTED PIZANO'S SIGN: Negative. INTRAHEPATIC DUCTS AND COMMON DUCT: CBD and intrahepatic ducts normal caliber. No filling defects. INFERIOR VENA CAVA: Normal flow. AORTA: No aneurysm. RIGHT KIDNEY: Normal size. Normal echogenicity. No solid or suspicious masses. No hydronephrosis. No calcifications. PERITONEAL AND RIGHT PLEURAL SPACE: No ascites or effusions. OTHER: No other significant findings. IMPRESSION: Stable sonographic appearance of the right upper quadrant demonstrating hepatic steatosi s with areas of focal fatty sparing. TECHNICAL DOCUMENTATION: JOB ID: [id number] [employer]- All Rights Reserved Reading location - IP/workstation name: [email or web address]
== END ==
LOC: RAD 08:49
PROVIDERS: ATTEND Family Medicine
DX: R74.8 Abnormal levels of other serum enzymes (principal); K76.0 Fatty (change of) liver, not elsewhere classified
CPT/HCPCS: 76705